=== PATIENT | female | born 1970 ===

== ENCOUNTER 2017-07-27 15:02 | Emergency (ER) | payer SELFPAY ==
[2017-07-27 15:25] VITALS: BP 113/54; PULSE 78; RESP 16; TEMP 98.3; O2SAT 100
--- NOTE | 2017-07-27 16:33 | ED PDOC ---
HPI: General Adult Time Seen by Provider: 07/27/17 15:46 Chief Complaint (Nursing): Flu-like Symptoms Chief Complaint (Provider): Flu-like Symptoms History Per: Patient History/Exam Limitations: no limitations Current Symptoms Are (Timing): Still Present Additional Complaint(s): 46 year old female presents to the emergency department with a complaint of a headache, facial pain, fever, runny nose, nasal congestion, cough, and body aches x2 weeks. Denies shortness of breath, rash, chest pain, or any further medical complaints Past Medical History Reviewed: Historical Data, Nursing Documentation, Vital Signs Vital Signs: Last Vital Signs Temp 98.3 F 07/27/17 15:23 Pulse 78 07/27/17 15:23 Resp 16 07/27/17 15:23 BP 113/54 L 07/27/17 15:23 Pulse Ox 100 07/27/17 20:05 - Medical History PMH: Gastritis - Surgical History Surgical History: Appendectomy, Endoscopy - Family History Family History: States: No Known Family Hx - Home Medications Home Medications: Ambulatory Orders Medication Instructions Recorded Omeprazole 40 mg PO DAILY 02/17/16 Amoxicillin 500 mg PO TID #30 tablet 07/27/17 Fluticasone Propionate [Flonase] 2 spr MAYNOR BID #1 bottle 07/27/17 Guaifenesin 400 mg PO QID #20 tablet 07/27/17 Ibuprofen [Motrin Tab] 600 mg PO QID PRN #20 tab 07/27/17 - Allergies Allergies/Adverse Reactions: Allergies Allergy/AdvReac Type Severity Reaction Status Date / Time No Known Allergies Allergy Verified 12/09/14 14:17 Review of Systems ROS Statement: Except As Marked, All Systems Reviewed And Found Negative (As per HPI, otherwise negative) Constitutional: Positive for: Fever, Other (body aches) ENT: Positive for: Nose Discharge, Nose Congestion, Other (Facial pain) Cardiovascular: Negative for: Chest Pain Respiratory: Positive for: Cough. Negative for: Shortness of Breath Skin: Negative for: Rash Neurological: Positive for: Headache Physical Exam - Reviewed Nursing Documentation Reviewed: Yes Vital Signs Reviewed: Yes - Physical Exam Appears: Positive for: No Acute Distress Head Exam: Positive for: NORMAL INSPECTION (Tenderness noted over the frontal sinuses) Skin: Positive for: Normal Color, Warm, Dry Cardiovascular/Chest: Positive for: Regular Rate, Rhythm. Negative for: Murmur Respiratory: Positive for: Normal Breath Sounds. Negative for: Accessory Muscle Use, Respiratory Distress Gastrointestinal/Abdominal: Positive for: Normal Exam, Soft. Negative for: Tenderness Extremity: Positive for: Normal ROM Neurologic/Psych: Positive for: Alert, Oriented (x3) - ECG O2 Sat by Pulse Oximetry: 100 (RA) Pulse Ox Interpretation: Normal Medical Decision Making Medical Decision Making: Time: 1454 Initial impression: sinusitis Time: 1631 Patient diagnosed with Sinusitis and given Rx for Amoxicillin 500 mg, Flonase, Guaifenesin 400 mg, and Motrin 600 mg. Follow up with the clinic in 1-2 days without fail. Advised to take medication as prescribed. Return to the emergency room at any time for any new or worsening symptoms. Patient states she fully agrees with and understands discharge instructions. States that she agrees with the plan and disposition. Verbalized and repeated discharge instructions and plan. I have given the patient opportunity to ask any additional questions. Scribe Attestation: Documented by Mariela Kelly, acting as a scribe for Leticia Deal PA-C Provider Scribe Attestation: All medical record entries made by the Scribe were at my direction and personally dictated by me. I have reviewed the chart and agree that the record accurately reflects my personal performance of the history, physical exam, medical decision making, and the department course for this patient. I have also personally directed, reviewed, and agree with the discharge instructions and disposition. Disposition - Clinical Impression Clinical Impression: Sinusitis - Patient ED Disposition Is Patient to be Admitted: No Counseled Patient/Family Regarding: Diagnosis, Need For Followup, Rx Given - Disposition Referrals: [facility] [Outside] Disposition: Routine/Home Disposition Time: 16:31 Condition: STABLE Prescriptions: Amoxicillin 500 mg PO TID #30 tablet Fluticasone Propionate [Flonase] 2 spr MAYONR BID #1 bottle Guaifenesin 400 mg PO QID #20 tablet Ibuprofen [Motrin Tab] 600 mg PO QID PRN #20 tab PRN Reason: Fever >100.4 F Instructions: Sinusitis (ED) Forms: [employer] (Georgian), [facility] ED School/Work Excuse Print Language: 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
== END 2017-07-27 17:16 | disposition home or self-care (01) ==
LOC: H.ER 15:02
DX: J32.9 Chronic sinusitis, unspecified (principal)

== ENCOUNTER 2017-08-11 15:43 | Emergency (ER) | payer SELFPAY ==
[2017-08-11 16:22] VITALS: PULSE 84; RESP 16; TEMP 98; O2SAT 100
[2017-08-11 16:23] VITALS: BP 120/71
--- NOTE | 2017-08-11 16:45 | ED PDOC ---
HPI: General Adult Time Seen by Provider: 08/11/17 16:27 Chief Complaint (Nursing): Flu-like Symptoms Chief Complaint (Provider): Flu-like Symptoms History Per: Patient History/Exam Limitations: no limitations Onset/Duration Of Symptoms: Days Current Symptoms Are (Timing): Still Present Additional Complaint(s): 47 year old female presents to the emergency department with a complaint of a cough, body aches, fever, and nausea x3 days within the past 48 hours. Symptoms started night. Denies vomiting, diarrhea, abdominal pain, chest pain, shortness of breath, or blood in cough. Past Medical History Reviewed: Historical Data, Nursing Documentation, Vital Signs Vital Signs: Last Vital Signs Temp 98.0 F 08/11/17 16:22 Pulse 84 08/11/17 16:22 Resp 16 08/11/17 16:22 BP 120/71 08/11/17 16:22 Pulse Ox 100 08/11/17 16:48 - Medical History PMH: Gastritis - Surgical History Surgical History: Appendectomy, Endoscopy - Family History Family History: States: No Known Family Hx - Home Medications Home Medications: Ambulatory Orders Medication Instructions Recorded Omeprazole 40 mg PO DAILY 02/17/16 Amoxicillin 500 mg PO TID #30 tablet 07/27/17 Fluticasone Propionate [Flonase] 2 spr MAYNOR BID #1 bottle 07/27/17 Guaifenesin 400 mg PO QID #20 tablet 07/27/17 Ibuprofen [Motrin Tab] 600 mg PO QID PRN #20 tab 07/27/17 Oseltamivir [Tamiflu] 75 mg PO BID #10 cap 08/11/17 Promethazine DM [Phenergan DM 5 - 10 ml PO Q8 PRN #120 ml 08/11/17 Syrup] - Allergies Allergies/Adverse Reactions: Allergies Allergy/AdvReac Type Severity Reaction Status Date / Time No Known Allergies Allergy Verified 08/11/17 16:20 Review of Systems ROS Statement: Except As Marked, All Systems Reviewed And Found Negative (As per HPI, otherwise negative) Constitutional: Positive for: Fever, Other (Body aches) Cardiovascular: Negative for: Chest Pain Respiratory: Negative for: Shortness of Breath, Hemoptysis Gastrointestinal: Positive for: Nausea. Negative for: Vomiting, Abdominal Pain , Diarrhea Physical Exam - Reviewed Nursing Documentation Reviewed: Yes Vital Signs Reviewed: Yes - Physical Exam Appears: Positive for: No Acute Distress Head Exam: Positive for: NORMAL INSPECTION Skin: Positive for: Normal Color, Warm, Dry. Negative for: Rash Eye Exam: Positive for: Normal appearance, EOMI, PERRL ENT: Positive for: Normal ENT Inspection, Pharynx Is (Clear), TM Is/Are (Clear) . Negative for: Pharyngeal Erythema Cardiovascular/Chest: Positive for: Regular Rate, Rhythm. Negative for: Murmur Respiratory: Positive for: Normal Breath Sounds. Negative for: Accessory Muscle Use, Respiratory Distress Gastrointestinal/Abdominal: Positive for: Normal Exam, Soft. Negative for: Tenderness Neurologic/Psych: Positive for: Alert, Oriented (x3) - ECG O2 Sat by Pulse Oximetry: 100 (RA) Pulse Ox Interpretation: Normal Medical Decision Making Medical Decision Making: Time: 1627 Initial impression: Flu-like symptoms Initial plan: --Evaluated and ready for discharge. Time: 1640 --Patient is medically stable for discharge. Give Rx for Tamiflu 75 mg and Phenergan DM Syrup. Clinical Impression: Influenza-like symptoms Scribe Attestation: Documented by Mariela Kelly, acting as a scribe for Ishmael Angel PA-C Provider Scribe Attestation: All medical record entries made by the Scribe were at my direction and personally dictated by me. I have reviewed the chart and agree that the record accurately reflects my personal performance of the history, physical exam, medical decision making, and the department course for this patient. I have also personally directed, reviewed, and agree with the discharge instructions and disposition. Disposition - Clinical Impression Clinical Impression: Influenza-like symptoms - Patient ED Disposition Is Patient to be Admitted: No Counseled Patient/Family Regarding: Diagnosis, Need For Followup, Rx Given - Disposition Disposition: Routine/Home Disposition Time: 16:40 Condition: STABLE Prescriptions: Oseltamivir [Tamiflu] 75 mg PO BID #10 cap Promethazine DM [Phenergan DM Syrup] 5 - 10 ml PO Q8 PRN #120 ml PRN Reason: Cough Instructions: Influenza (ED) Forms: [employer] (Ukrainian), [facility] ED School/Work Excuse Print Language: MALTESE
== END 2017-08-11 17:14 | disposition home or self-care (01) ==
LOC: H.ER 15:43
DX: R50.9 Fever, unspecified (principal); R05 Cough; R11.0 Nausea

== ENCOUNTER 2017-12-20 23:07 | Emergency (ER) | payer SELFPAY ==
--- NOTE | 2017-12-21 01:27 | ED PDOC ---
HPI: Allergic Reaction Time Seen by Provider: 12/21/17 01:03 Chief Complaint (Nursing): Abnormal Skin Integrity Chief Complaint (Provider): Allergic Reaction History Per: Patient History/Exam Limitations: no limitations Onset/Duration Of Symptoms: Hrs (since 630pm) Current Symptoms Are (Timing): Better Possible Cause: Medication (Meloxicam) Associated Symptoms: Itching Home/EMS Treatment: None Additional Complaint(s): 47 year old female with a history of gastritis, high cholesterol, chronic back pain presets to the ED with a possible allergic reaction s/p taking Mobic for the first time at 18:30. She reports feeling itchy all over and red blotches that have since improved. She denies taking any medications prior to arrival, any history of allergic reaction, fever, cough, shortness of breath, nausea, vomiting, abdominal pain, facial swelling, or any other medical problems. LNMP was 12/15/17 PMD: Dr. Herbert Past Medical History Vital Signs: Last Vital Signs Temp 97.8 F 12/20/17 23:08 Pulse 78 12/20/17 23:08 Resp 17 12/20/17 23:08 BP 115/77 12/20/17 23:08 Pulse Ox 98 12/20/17 23:08 - Medical History PMH: Gastritis, Hypercholesterolemia, Chronic Pain (back) - Surgical History Surgical History: Appendectomy, Endoscopy - Family History Family History: States: Unknown Family Hx - Social History Current smoker - smoking cessation education provided: No Ex-Smoker (has not smoked in the last 12 months): No Alcohol: Social Drugs: Denies - Home Medications Home Medications: Ambulatory Orders Medication Instructions Recorded Omeprazole 40 mg PO DAILY 02/17/16 Amoxicillin 500 mg PO TID #30 tablet 07/27/17 Fluticasone Propionate [Flonase] 2 spr MAYNOR BID #1 bottle 07/27/17 Guaifenesin 400 mg PO QID #20 tablet 07/27/17 Ibuprofen [Motrin Tab] 600 mg PO QID PRN #20 tab 07/27/17 Oseltamivir [Tamiflu] 75 mg PO BID #10 cap 08/11/17 Promethazine DM [Phenergan DM 5 - 10 ml PO Q8 PRN #120 ml 08/11/17 Syrup] Acetaminophen [Acetaminophen 8 650 mg PO Q8 PRN #24 tablet.er 12/21/17 Hour] DiphenhydrAMINE [Benadryl] 50 mg PO Q6 PRN #24 cap 12/21/17 Famotidine [Pepcid] 40 mg PO DAILY PRN #5 tablet 12/21/17 - Allergies Allergies/Adverse Reactions: Allergies Allergy/AdvReac Type Severity Reaction Status Date / Time No Known Allergies Allergy Verified 08/11/17 16:20 Review of Systems Constitutional: Positive for: Other (itchiness and red blotches) Physical Exam - Reviewed Nursing Documentation Reviewed: Yes Vital Signs Reviewed: Yes - Physical Exam Comments: GENERAL APPEARANCE: Patient is awake, alert, oriented x 3, in no acute distress. SKIN: Scattered erythematous macules (-) excoriations, (-) drainage, (-) crusting of lesions is present (-) evidence of cellulitis. HENT: (-) conjunctival injection, (-) chemosis. Oropharynx: clear (-) tongue or lip swelling, (-) tonsillar exudates, (-) erythema. Airway: patent (-) stridor, (-) hoarseness. Mucous membranes moist. Nares: Patent (-) rhinorrhea. NECK: Supple, FROM (-) lymphadenopathy, (-) tenderness. CARDIOVASCULAR: Normal rate and rhythm. (-) murmur, (-) gallop. CHEST: (-) rales, (-) wheezing, (-) dyspnea, (-) stridor. Breath sounds equal bilaterally. Respirations even and nonlabored, speaking in full sentences. ABDOMEN: Soft. (-) tenderness, (-) distention, (-) guarding NEURO: Gait steady, speech clear. (-) facial asymmetry (-) aphasia. EOMI. Uvula and tongue midline. - ECG O2 Sat by Pulse Oximetry: 98 (RA) Pulse Ox Interpretation: Normal Disposition - Clinical Impression Clinical Impression: Allergic reaction caused by a drug, Generalized pruritus - Patient ED Disposition Is Patient to be Admitted: No Counseled Patient/Family Regarding: Diagnosis, Need For Followup, Rx Given - Disposition Referrals: [facility] [Outside] Disposition: Routine/Home Disposition Time: 02:04 Condition: STABLE Additional Instructions: FOLLOW UP WITH PMD/CLINIC IN 1-2 DAYS WITHOUT FAIL FOR FURTHER EVALUATION. RETURN TO ED WITH ANY NEW OR WORSENING SYMPTOMS. AVOID USE OF MELOXICAM AND NSAIDS. USE TYLENOL INSTEAD NEEDED FOR BACK PAIN. USE BENADRYL AND PEPCID NEEDED FOR ITCHING/ALLERGY SYMPTOMS. Prescriptions: Acetaminophen [Acetaminophen 8 Hour] 650 mg PO Q8 PRN #24 tablet.er PRN Reason: BACK PAIN DiphenhydrAMINE [Benadryl] 50 mg PO Q6 PRN #24 cap PRN Reason: Itching / Pruritus Famotidine [Pepcid] 40 mg PO DAILY PRN #5 tablet PRN Reason: Itching / Pruritus Instructions: Itchy Skin, Adverse Drug Reactions, Adult, Drug Allergy Forms: [employer] ([place]) (Lithuanian) Print Language: CANADIAN - POA Present On Arrival: None MDMA - Impression/Plan/Differential Dx Note:: Time: 1:18 Initial Impression: pruritus and possible allergic reaction to drug Initial Plan: --Benadryl 50 mg PO --Pepcid 40 mg PO 0200 On re-evaluation, patient reports improvement of symptoms and resolution of pruritis. Patient remains AAOx3, in no acute distress. On exam, neck is supple, lungs CTA, cardiac RRR, abdomen soft/nontender, neuro exam shows no focal findings. VSS, stable for discharge. Advised to avoid NSAID use and to use Tylenol as needed for back pain. Diagnostic results d/w the patient in great detail. Dx of allergic reaction to medication d/w the patient. Based on history, exam and diagnostic results plan will be for discharge and outpatient follow up. Advised to follow up with primary care physician/clinic/referred provider in 1- 2 days without fail. Return to the emergency room at any time for any new or worsening symptoms. Patient states she fully agrees with and understands discharge instructions. States that she agrees with the plan and disposition. Verbalized and repeated discharge instructions and plan. I have given the patient opportunity to ask any additional questions. Scribe Attestation: Documented by Noemy Kwon, acting as a scribe for Swathi Kaba PA-C Provider Scribe Attestation: All medical record entries made by the Scribe were at my direction and personally dictated by me. I have reviewed the chart and agree that the record accurately reflects my personal performance of the history, physical exam, medical decision making, and the department course for this patient. I have also personally directed, reviewed, and agree with the discharge instructions and disposition.
[2017-12-21 02:18] VITALS: BP 121/68; PULSE 76; RESP 16; TEMP 97.9
[2017-12-21 04:43] VITALS: O2SAT 98
== END 2017-12-21 02:14 | disposition home or self-care (01) ==
LOC: H.ER 23:07
DX: T78.40XA Allergy, unspecified, initial encounter (principal); G89.29 Other chronic pain; E78.00 Pure hypercholesterolemia, unspecified

== ENCOUNTER 2018-03-23 19:02 | Emergency (ER) | payer OTHER ==
--- NOTE | 2018-03-23 20:34 | ED PDOC ---
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 Patient describes headache as 8/10 and worsening; she denies any history of similar headaches in the past. Notes that she also had a mild cough at onset of symptoms but that that has since resolved. Took Advil 400 mg at 10am with no relief. LMP March 08. Denies changes in vision, dizziness, nausea, vomiting, diarrhea, numbness, weakness, fever, chills, neck pain, stiffness, ear pain, throat pain and abdominal pain. PMD: Dr Espinal Past Medical History Reviewed: Historical Data, Nursing Documentation, Vital Signs Vital Signs: Last Vital Signs Temp 97.7 F 03/23/18 19:44 Pulse 66 03/23/18 19:44 Resp 16 03/23/18 19:44 BP 92/60 L 03/23/18 19:44 Pulse Ox 99 03/23/18 19:44 - Medical History PMH: Gastritis, Hypercholesterolemia, Chronic Pain (back) - Surgical History Surgical History: Appendectomy, Endoscopy - Family History Family History: States: Unknown Family Hx - Social History Current smoker - smoking cessation education provided: No Alcohol: Social Drugs: Denies - Home Medications Home Medications: Ambulatory Orders Medication Instructions Recorded Omeprazole 40 mg PO DAILY 02/17/16 Amoxicillin 500 mg PO TID #30 tablet 07/27/17 Fluticasone Propionate [Flonase] 2 spr MAYNOR BID #1 bottle 07/27/17 Guaifenesin 400 mg PO QID #20 tablet 07/27/17 Ibuprofen [Motrin Tab] 600 mg PO QID PRN #20 tab 07/27/17 Oseltamivir [Tamiflu] 75 mg PO BID #10 cap 08/11/17 Promethazine DM [Phenergan DM 5 - 10 ml PO Q8 PRN #120 ml 08/11/17 Syrup] Acetaminophen [Acetaminophen 8 650 mg PO Q8 PRN #24 tablet.er 12/21/17 Hour] DiphenhydrAMINE [Benadryl] 50 mg PO Q6 PRN #24 cap 12/21/17 Famotidine [Pepcid] 40 mg PO DAILY PRN #5 tablet 12/21/17 Amoxicillin/Clavulanate [Augmentin 1 tab PO BID #14 tab 03/23/18 875 MG-125 MG] Fluticasone Nasal [Flonase] 1 actuation NS BID #1 spr 03/23/18 Naproxen 500 mg PO BID PRN #20 tab 03/23/18 - Allergies Allergies/Adverse Reactions: Allergies Allergy/AdvReac Type Severity Reaction Status Date / Time No Known Allergies Allergy Verified 03/23/18 19:44 Review of Systems ROS Statement: Except As Marked, All Systems Reviewed And Found Negative ENT: Positive for: Nose Congestion Neurological: Positive for: Headache Physical Exam - Reviewed Nursing Documentation Reviewed: Yes Vital Signs Reviewed: Yes - Physical Exam Comments: GENERAL APPEARANCE: Patient is awake, alert, oriented x3; Uncomfortable appearing. SKIN: Warm, dry; (-) cyanosis; (-) petechiae, (-) rash EYES: (-) conjunctival pallor, (-) icterus. ENMT: TMs (-) erythema (-) bulging. Pharynx: clear, uvula midline (-) tonsillar erythema, (-) tonsillar exudate. Airway patent, (-) stridor. Mucous membranes moist. (+)Left maxillary and frontal sinus tenderness; (-) tenderness to temporal artery NECK: Supple, FROM (-) stiffness, (-) meningismus, (-) lymphadenopathy. CHEST AND RESPIRATORY: (-) retractions, (-) rales, (-) rhonchi, (-) wheezes; breath sounds equal bilaterally. Respirations even and nonlabored, speaking in full sentences. HEART AND CARDIOVASCULAR: (-) irregularity ABDOMEN AND GI: Soft; (-) tenderness; (-) distention, (-) guarding EXTREMITIES: (-) deformity; distal pulses are present. NEURO AND PSYCH: Mental status as above; Gait: steady. Speech: clear. EOMI and painless. Pupils equal and reactive. hedis registered nurse rn grossly intact. Cerebellar tests intact. - Laboratory Results Result Diagrams: 03/23/18 21:13 03/23/18 21:13 Urine POC: Negative Urine dip results: Positive for: Blood (trace-lysed). Negative for: Leukocyte Esterase, Nitrate, Ketones, Glucose, Bilirubin, Protein - ECG O2 Sat by Pulse Oximetry: 99 (RA) Pulse Ox Interpretation: Normal Medical Decision Making Medical Decision Makin Impression: headache and congestion; probable sinusitis --Head CT --BMP --U preg --U Dip --CBC --Tylenol 650 mg PO Upreg: negative [address] 220 Labs reviewed and grossly unremarkable. Head CT reviewed, radiology report follows EXAM: CT Head Without Intravenous Contrast CLINICAL HISTORY: 47 years old, female; Pain; Headache; Additional info: Headache, probable sinusitis TECHNIQUE: Axial computed tomography images of the head/brain without intravenous contrast. All CT scans at this facility use at least one of these dose optimization techniques: automated exposure control; mA and/or kV adjustment per patient size (includes targeted exams where dose is matched to clinical indication); or iterative reconstruction. Coronal and sagittal reformatted images were created and reviewed. COMPARISON: No relevant prior studies available. FINDINGS: Brain: No hemorrhage. No significant periventricular microischemic changes. No edema. Dystrophic bilateral basal ganglia calcifications. Ventricles: Appropriate for patient's age. Bones/joints: No acute fracture. Soft tissues: No radiopaque foreign body. Sinuses: No acute sinusitis. Mastoid air cells: No mastoid effusion. IMPRESSION: 1. The included paranasal sinuses are clear. 2. No acute CT intracranial abnormalities. Thank you for allowing us to participate in the care of your patient. Dictated and Authenticated by: Beau Leblanc MD 03/23/2018 10:07 PM Eastern Time ( [place] & [place]) Augmentin 875mg PO administered for clinical suspicion of sinusitis. Toradol 30mg IVP ordered for additional pain control. 2345 On re-evaluation, patient reports improvement of symptoms. On exam, patient remains AAOx3, in no acute distress. Lungs clear to auscultation, cardiac RRR, abdomen soft, non-tender, repeat neuro exam shows no focal findings. VSS, stable for discharge. Lab/Diagnostic results d/w the patient in great detail. Diagnosis of headache, sinusitis d/w the patient. Based on history, exam and diagnostic results, plan will be for outpatient follow up. Patient instructed to follow-up with pmd / referral provided / the clinic in 1- 2 days without fail. Advised to take medication as prescribed. Return to the emergency room at any time for any new or worsening symptoms. Patient states she fully agrees with and understands discharge instructions. States that she agrees with the plan and disposition. Verbalized and repeated discharge instructions and plan. I have given the patient opportunity to ask any additional questions. Disposition - Clinical Impression Clinical Impression: Headache, Sinusitis - Patient ED Disposition Is Patient to be Admitted: No Counseled Patient/Family Regarding: Studies Performed, Diagnosis, Need For Followup, Rx Given - Disposition Referrals: [facility] [Outside] Joan Herbert MD [Family Provider] - Disposition: Routine/Home Disposition Time: 23:55 Condition: STABLE Additional Instructions: La atencin mdica de emergencia que recibi hoy se dirigi a los sntomas agudos de presentacin. Si le prescribieron algn medicamento, por favor ll tanya y d vince indicado. Samira sntomas pueden tardar varios nieves en resolverse. Regrese al Departamento de Emergencia en cualquier momento si los sntomas empeoran, no mejoran o si surge algn otro problema. Comunquese con umanzor mdico en 2 nieves para ramiro reevaluacin y seguimiento / o llame a prince de los mdicos / clnicas a los que dunn referido y que figura en el formulario de Informacin de visitas del paciente que se incluye en umanzor paquete de rosie. Lleve todos los documentos que recibi al momento del rosie junto con los medicamentos a umanzor visita de seguimiento. Nuestro tratamiento no puede reemplazar la atencin mdica en curso por parte de un proveedor de atencin primaria (PCP) fuera del departamento de emergencias. Prescriptions: Amoxicillin/Clavulanate [Augmentin 875 MG-125 MG] 1 tab PO BID #14 tab Fluticasone Nasal [Flonase] 1 actuation NS BID #1 spr Naproxen 500 mg PO BID PRN #20 tab PRN Reason: Headache Instructions: Sinusitis in Adults, Headache, Adult, Sinus Headache (DC) Forms: [employer] (Mosotho) Print Language: CYMRO - POA Present On Arrival: None Results - Lab Results Lab Results: 03/23/18 03/23/18 21:13 21:13 WBC 8.9 D RBC 4.09 Hgb 12.2 Hct 35.8 MCV 87.7 MCH 29.9 MCHC 34.1 RDW 12.9 Plt Count 295 MPV 9.1 Neut % (Auto) 51.1 Lymph % (Auto) 41.2 H [place] % (Auto) 5.0 Eos % (Auto) 2.1 Baso % (Auto) 0.6 Neut # (Auto) 4.6 Lymph # (Auto) 3.7 [place] # (Auto) 0.4 Eos # (Auto) 0.2 Baso # (Auto) 0.1 Sodium 139 Potassium 4.0 Chloride 105 Carbon Dioxide 25 Anion Gap 13 BUN 14 Creatinine 0.5 L Est GFR ( Amer) > 60 Est GFR (Non-Af Amer) > 60 Random Glucose 86 Calcium 9.4
[2018-03-23 21:22] LABS: BASO # 0.1 K/uL (0.0-0.2); BASO % 0.6 % (0.0-2.0); EOS # 0.2 K/uL (0.0-0.7); EOS % 2.1 % (0.0-4.0); HEMOGLOBIN 12.2 g/dL (12.0-16.0); LYMPH # 3.7 K/uL (1.0-4.3); LYMPH % 41.2 % (20.0-40.0); MEAN CELL VOLUME 87.7 fl (81.0-99.0); MEAN CORPUSCULAR HEMOGLOBIN 29.9 pg (27.0-31.0); MEAN CORPUSCULAR HGB CONC 34.1 g/dL (33.0-37.0); MEAN PLATELET VOLUME 9.1 fl (7.2-11.7); MONO # 0.4 K/uL (0.0-0.8); NEUT # 4.6 K/uL (1.8-7.0); NEUT % 51.1 % (50.0-75.0); RBC 4.09 Mil/uL (3.80-5.20); RED CELL DISTRIBUTION WIDTH 12.9 % (11.5-14.5); WHITE BLOOD COUNT 8.9 K/uL (4.8-10.8)
[2018-03-23 21:36] LABS: BLOOD UREA NITROGEN 14 mg/dl (7-17); CALCIUM 9.4 mg/dL (8.4-10.2); GFR NON-AFRICAN AMERICAN > 60
[2018-03-23] MEDS ORDERED: Amoxicillin-Clav 875-125 mg Tab PO STA (22:10)
[2018-03-23] MEDS ORDERED: Amoxicillin-Clav 875-125 mg Tab PO ONE (23:09)
[2018-03-24 00:08] VITALS: BP 102/67; PULSE 63; RESP 17; TEMP 97.8
[2018-03-24 02:31] VITALS: O2SAT 99
--- NOTE | 2018-03-24 10:54 | CT ---
Date of service: 03/23/2018 PROCEDURE: CT HEAD WITHOUT CONTRAST. HISTORY: headache, probable sinusitis COMPARISON: None available. TECHNIQUE: Axial computed tomography images were obtained through the head/brain without intravenous contrast. Radiation dose: Total exam DLP = 728 mGy-cm. This CT exam was performed using one or more of the following dose reduction techniques: Automated exposure control, adjustment of the mA and/or kV according to patient size, and/or use of iterative reconstruction technique. FINDINGS: HEMORRHAGE: No intracranial hemorrhage. BRAIN: No mass effect or edema. No atrophy or chronic microvascular ischemic changes. VENTRICLES: Unremarkable. No hydrocephalus. CALVARIUM: Unremarkable. PARANASAL SINUSES: Minor mucosal thickening in the sinuses without fluid level. Left mastoid air cells are unremarkable. There is hypoplasia of the right mastoid air cells. No significant opacification seen. MASTOID AIR CELLS: Please see above. OTHER FINDINGS: Orbits and retro-orbital regions are unremarkable. No cortical effacement is seen. No extra-axial fluid collection is identified. Small amount of basal ganglia calcification is noted. No tonsillar ectopia is seen. No sellar masses are noted. IMPRESSION: No evidence of recent infarct or intracranial hemorrhage. This agrees with preliminary report.
== END 2018-03-24 00:09 | disposition home or self-care (01) ==
LOC: H.ER 19:02
DX: R51 Headache (principal); J32.9 Chronic sinusitis, unspecified
CPT/HCPCS: 70450; 80048; 81025; 85025; 96374; 99285; J1885